=== PATIENT | female | born 1950 | race Caucasian/White ===

== ENCOUNTER 2022-07-16 18:09 | Inpatient (IN) | payer OTHER, MEDICAID ==
[~2022-07-16] VITALS: Ht 157.5 cm; Wt 63.5 kg
[2022-07-16 18:12] VITALS: BP 95/69
--- NOTE | 2022-07-16 18:23 | NUR ---
PATIENT BIBA TO BED 2.
--- NOTE | 2022-07-16 18:46 | NUR ---
pt in bed 2, nad, oriented to name, denies any pain, sr on cm, o2 sat 95%ra, sr up times 2
[2022-07-16] MEDS ORDERED: MEROPENEM 1,000 MG in NACL 0.9% 50 ML IV ONE (19:30)
[2022-07-16] MEDS ORDERED: NACL 0.9% 1,000 ML IV ONE (19:30)
[2022-07-16] MEDS ORDERED: VANCOMYCIN 1,000 MG in DEXTROSE 5% 250 ML IV ONE (19:30)
[2022-07-16] MEDS ORDERED: VANCOMYCIN 1,000 MG VIAL ONE (19:54)
[2022-07-16] MEDS ORDERED: MEROPENEM 1,000 MG VIAL IV ONE (19:56)
[2022-07-16 20:16] LABS: BASOPHILS # (AUTO) 0.1 K/uL (0.00-0.22); BASOPHILS % (AUTO) 0.5 % (0.0-2.0); EOSINOPHILS # (AUTO) 0.2 K/uL (0-0.4); EOSINOPHILS % (AUTO) 1.6 % (0.0-4.0); HEMATOCRIT 35.3 % (36-48); LYMPHOCYTES # (AUTO) 1.9 K/uL (2.5-16.5); LYMPHOCYTES % (AUTO) 18.4 % (20.5-51.1); MEAN CORPUSCULAR HEMOGLOBIN 33 pg (27-31); MEAN CORPUSCULAR HGB CONC 31 g/dL (33-37); MEAN CORPUSCULAR VOLUME 105.4 fL (80-94); MONOCYTES # (AUTO) 0.6 K/uL (0.8-1.0); MONOCYTES % (AUTO) 5.8 % (1.7-9.3); NEUTROPHILS # (AUTO) 7.7 K/uL (1.8-7.7); NEUTROPHILS % (AUTO) 73.7 % (42.2-75.2); PLATELET COUNT (AUTO) 424 K/uL (140-450); RED BLOOD CELL COUNT(AUTO) 3.34 MIL/uL (4.20-5.40); RED CELL DISTRIBUTION WIDTH 15.5 % (11.6-13.7); WHITE BLOOD COUNT (AUTO) 10.5 K/uL (4.8-10.8)
[2022-07-16 21:03] LABS: ALBUMIN 2.1 g/dL (3.4-5.0); ANION GAP 19.2 (8-16); ASPARTATE AMINOTRANSFERASE 41 U/L (15-37); CARBON DIOXIDE 26.6 mmol/L (21-32); CREATININE 2.1 mg/dL (0.6-1.3); GLUCOSE 333 mg/dL (74-106); TOTAL BILIRUBIN 0.4 mg/dL (0.0-1.0)
[2022-07-16 21:05] LABS: SODIUM SERUM 167 mmol/L (136-145)
[2022-07-16 21:06] LABS: UREA NITROGEN, BLOOD 93 mg/dL (7-18)
[2022-07-16 21:08] LABS: CHLORIDE 128 mmol/L (98-107)
[2022-07-16 21:10] LABS: POTASSIUM 6.8 mmol/L (3.5-5.1)
--- NOTE | 2022-07-16 22:37 | NUR ---
patient care was perfomed and pt voided 50 ml.
[2022-07-16 22:52] LABS: APPEARANCE,URINE TURBID (CLEAR); BILIRUBIN,URINE NEGATIVE (NEGATIVE); BLOOD, URINE 2+ (NEGATIVE); COLOR,URINE YELLOW (YELLOW); LEUKOCYTE ESTERASE ,URINE 2+ (NEGATIVE); NITRITE, URINE POSITIVE (NEGATIVE); UGLUCOSE NEGATIVE (NEGATIVE)
[2022-07-16 23:36] LABS: RBC,URINE 0-5 /HPF (0-5); WBC,URINE TOO MANY TO COUNT /HPF (0-5)
[2022-07-17] MEDS ORDERED: NACL 0.9% 1,000 ML IV ONE (01:25)
[2022-07-17] MEDS ORDERED: MULT-2246 PO (01:28)
[2022-07-17] MEDS ORDERED: APIX2.5 PO (01:28)
[2022-07-17] MEDS ORDERED: NATE60TA13 PO (01:28)
[2022-07-17] MEDS ORDERED: AMLO-3 PO (01:28)
[2022-07-17] MEDS ORDERED: HAL5 PO (01:28)
[2022-07-17] MEDS ORDERED: POLY17PD46 PO (01:28)
[2022-07-17] MEDS ORDERED: DOCU-299 PO (01:28)
[2022-07-17] MEDS ORDERED: INSU100S53 SC (01:28)
[2022-07-17] MEDS ORDERED: ALLO100T21 PO (01:28)
[2022-07-17] MEDS ORDERED: DIVA250T PO (01:28)
[2022-07-17] MEDS ORDERED: MAGN400S60 PO (01:28)
[2022-07-17] MEDS ORDERED: SIMV-372 PO (01:28)
[2022-07-17] MEDS ORDERED: METO25TE2 PO (01:28)
[2022-07-17] MEDS ORDERED: METF-1139 PO (01:28)
[2022-07-17] MEDS ORDERED: BENZ2TAB27 PO (01:28)
[2022-07-17] MEDS ORDERED: VENL150T7 PO (01:28)
[2022-07-17] MEDS ORDERED: PANT40EC PO (01:28)
[2022-07-17] MEDS ORDERED: LACT10SO93 PO (01:28)
[2022-07-17] MEDS ORDERED: SYN.05 PO (01:28)
[2022-07-17] MEDS ORDERED: guaiFENesin DM 200/20 MG-10 ML 10 ML UDC PO PRN (01:30)
[2022-07-17] MEDS ORDERED: POTASSIUM CHLORIDE 10 MEQ TABER PO PRN (01:30)
[2022-07-17] MEDS ORDERED: ZOLPIDEM 5 MG TAB PO PRN (01:30)
[2022-07-17] MEDS ORDERED: DOCUSATE SODIUM 100 MG GELCAP PO PRN (01:30)
[2022-07-17] MEDS ORDERED: ONDANSETRON 4 MG/2 ML VIAL IM/IVP PRN (01:30)
[2022-07-17] MEDS ORDERED: ACETAMINOPHEN 325 MG TAB PO PRN (01:30)
[2022-07-17] MEDS ORDERED: HYDROcodone/APAP 7.5/325 MG 1 TAB PO PRN (01:30)
[2022-07-17] MEDS ORDERED: NACL 0.9% 1,000 ML IV SCH (01:30)
[2022-07-17] MEDS ORDERED: INSULIN REGULAR, HUMAN 100 UNIT/ML VIAL IV SCH ×2 (01:35→04:35)
[2022-07-17 02:22] LABS: PROTHROMBIN TIME 12.5 secs (10.8-13.4)
[2022-07-17] MEDS: DEXTROSE 50% 50 ML SYR IVP ONE ×2 (03:00→05:12)
[2022-07-17] MEDS ORDERED: DEXTROSE 50% 50 ML SYR IVP ONE ×2 (04:26→05:06)
[2022-07-17] MEDS ORDERED: PIPERACILLIN/TAZOBACTAM 3.375 GM in DEXTROSE 5% 50 ML IV SCH (05:00)
[2022-07-17] MEDS ORDERED: PIPERACILLIN/TAZOBACTAM 3.375 GM in DEXTROSE 5% 50 ML IV ONE (05:00)
[2022-07-17] MEDS ORDERED: PIPERACILLIN/TAZOBACTAM 2.25 GM VIAL IV ONE (05:41)
[2022-07-17] MEDS: PIPERACILLIN/TAZOBACTAM 2.25 GM in DEXTROSE 5% 50 ML IV SCH ×3 (05:46→20:02)
[2022-07-17 07:20] LABS: BASOPHILS % (AUTO) 0.3 % (0.0-2.0); EOSINOPHILS # (AUTO) 0.3 K/uL (0-0.4); EOSINOPHILS % (AUTO) 2.6 % (0.0-4.0); HEMATOCRIT 31.2 % (36-48); HEMOGLOBIN 9.6 g/dL (12.0-16.0); LYMPHOCYTES # (AUTO) 2.1 K/uL (2.5-16.5); LYMPHOCYTES % (AUTO) 18.9 % (20.5-51.1); MEAN CORPUSCULAR HEMOGLOBIN 33 pg (27-31); MEAN CORPUSCULAR HGB CONC 31 g/dL (33-37); MEAN CORPUSCULAR VOLUME 107.1 fL (80-94); MONOCYTES # (AUTO) 0.8 K/uL (0.8-1.0); MONOCYTES % (AUTO) 7.1 % (1.7-9.3); NEUTROPHILS % (AUTO) 71.1 % (42.2-75.2); PLATELET COUNT (AUTO) 332 K/uL (140-450); RED BLOOD CELL COUNT(AUTO) 2.92 MIL/uL (4.20-5.40); RED CELL DISTRIBUTION WIDTH 15.1 % (11.6-13.7); WHITE BLOOD COUNT (AUTO) 11.2 K/uL (4.8-10.8)
--- NOTE | 2022-07-17 07:25 | NUR ---
report received from ирина duarte
[2022-07-17 07:34] LABS: ANION GAP 15.2 (8-16); CARBON DIOXIDE 24.6 mmol/L (21-32); CHLORIDE 136 mmol/L (98-107); CREATININE 1.8 mg/dL (0.6-1.3); GLUCOSE 269 mg/dL (74-106); POTASSIUM 3.8 mmol/L (3.5-5.1)
[2022-07-17 07:39] LABS: MAGNESIUM 1.8 mg/dL (1.8-2.4); PHOSPHORUS 2.1 mg/dL (2.5-4.9)
[2022-07-17 07:49] LABS: SODIUM SERUM 172 mmol/L (136-145); UREA NITROGEN, BLOOD 71 mg/dL (7-18)
--- NOTE | 2022-07-17 08:21 | NUR ---
Patient will be admitted to care of . Admited to TELE. Will go to room 120a. Belongings list completed. Report to yahaira duarte.
[2022-07-17] MEDS ORDERED: PANTOPRAZOLE 40 MG TABEC PO SCH (09:00)
--- NOTE | 2022-07-17 09:17 | NUR ---
PATIENT HAS BEEN SCREENED AND CATEGORIZED MODERATE NUTRITION RISK. PATIENT WILL BE SEEN WITHIN 3-5 DAYS OF ADMISSION. 07/17/22-07/22/[address] Addendum: 07/18/22 at [address] [facility] REFERRAL RECEIVED ON 07/18/22. REFERRAL DOES NOT MEET HIGH RISK CRITERIA PER HOSPITAL POLICY. PT WILL BE SEEN AND ASSESSED ACCORDING TO THE NUTRITION CARE POLICY. REVIEWED BY PATRICIA BALL RD
[2022-07-17] MEDS: DEXTROSE 5% 1,000 ML IV SCH ×2 (10:07→18:55)
[2022-07-17] MEDS ORDERED: DEXTROSE 50% 50 ML SYR IVP PRN (14:25)
[2022-07-17] MEDS: BLOOD GLUCOSE MONITORING 1 DEV DEV FS SCH ×2 (16:30→20:01)
[2022-07-17] MEDS: INSULIN LISPRO SLIDING SCALE 100 UNITS/ML VIAL SUBQ PRN ×2 (18:23→20:12)
--- NOTE | 2022-07-17 19:30 | NUR ---
RECEIVED PATIENT LYING ON THE BED, AWAKE, ALERT TO PERSON ONLY, NO SIGNS OF PAIN NOTED, NO SIGNS OF DISTRESS NOTED. D5 RUNNING @100ML/HR ON RIGHT AC ACCESS SITE, G 20, LINE INTACT AND PATENT. ALL SAFETY MEASURES IN PLACE.
[2022-07-17 20:00] VITALS: BP 155/73
--- NOTE | 2022-07-17 20:10 | NUR ---
BLOOD SUGAR 298 MG/DL, GIVEN 6 UNITS OF INSULIN PER SLIDING SCALE. DUE MEDICATIONS GIVEN ORDERED. CALL LIGHT WITHIN REACH.
[2022-07-17] MEDS: APIXABAN 2.5 MG TAB PO SCH (20:13)
[2022-07-17] MEDS: SIMVASTATIN 20 MG TAB PO SCH (20:14)
[2022-07-18] VITALS: BP 141/68
[2022-07-18 04:00] VITALS: BP 144/71
--- NOTE | 2022-07-18 04:10 | NUR ---
BEDSIDE CARE DONE. NO SIGNS OF PAIN NOTED, BREATHING EVEN AND NON LABORED ON ROOM AIR. SEIZURE PRECAUTIONS MAINTAINED.
[2022-07-18] MEDS: PIPERACILLIN/TAZOBACTAM 2.25 GM in DEXTROSE 5% 50 ML IV SCH ×3 (04:47→21:16)
--- NOTE | 2022-07-18 04:47 | NUR ---
SCHEDULED IV ANTIBIOTIC GIVEN ORDERED. ALL SAFETY MEASURES MAINTAINED.
[2022-07-18] MEDS: DEXTROSE 5% 1,000 ML IV SCH ×2 (04:50→17:29)
[2022-07-18] MEDS: LEVOTHYROXINE 0.05 MG TAB PO SCH (05:49)
[2022-07-18] MEDS: BLOOD GLUCOSE MONITORING 1 DEV DEV FS SCH ×4 (06:38→21:44)
--- NOTE | 2022-07-18 07:25 | NUR ---
RECEIVED REPORT FROM OUTSIDE MACHINIST FOR CONTINUITY OF CARE. INITIAL ASSESSMENT DONE. IVF INFUSING WELL. NO C/O PAIN OR DISCOMFORT. CALL LIGHT KEPT WITHIN REACH. WILL CONTINUE TO MONITOR.
--- NOTE | 2022-07-18 07:27 | NUR ---
ENDORSED TO DAY NURSE FOR CONTINUITY OF CARE. PATIENT IN STABLE CONDITION.
[2022-07-18 08:00] VITALS: BP 123/59
[2022-07-18 08:04] LABS: ANION GAP 12.8 (8-16); CARBON DIOXIDE 27.3 mmol/L (21-32); CHLORIDE 122 mmol/L (98-107); CREATININE 1.6 mg/dL (0.6-1.3); GLUCOSE 178 mg/dL (74-106); POTASSIUM 4.1 mmol/L (3.5-5.1); UREA NITROGEN, BLOOD 49 mg/dL (7-18)
[2022-07-18 08:09] LABS: MAGNESIUM 1.3 mg/dL (1.8-2.4); PHOSPHORUS 2.7 mg/dL (2.5-4.9)
[2022-07-18 08:11] LABS: BASOPHILS % (AUTO) 0.4 % (0.0-2.0); EOSINOPHILS # (AUTO) 0.4 K/uL (0-0.4); EOSINOPHILS % (AUTO) 5.2 % (0.0-4.0); HEMATOCRIT 33.2 % (36-48); HEMOGLOBIN 7.1 g/dL (12.0-16.0); LYMPHOCYTES # (AUTO) 1.1 K/uL (2.5-16.5); LYMPHOCYTES % (AUTO) 15.8 % (20.5-51.1); MEAN CORPUSCULAR HEMOGLOBIN 23 pg (27-31); MEAN CORPUSCULAR HGB CONC 21 g/dL (33-37); MEAN CORPUSCULAR VOLUME 106.3 fL (80-94); MONOCYTES # (AUTO) 0.3 K/uL (0.8-1.0); MONOCYTES % (AUTO) 4.9 % (1.7-9.3); NEUTROPHILS # (AUTO) 5.2 K/uL (1.8-7.7); NEUTROPHILS % (AUTO) 73.7 % (42.2-75.2); PLATELET COUNT (AUTO) 316 K/uL (140-450); RED BLOOD CELL COUNT(AUTO) 3.13 MIL/uL (4.20-5.40); RED CELL DISTRIBUTION WIDTH 15.2 % (11.6-13.7); WHITE BLOOD COUNT (AUTO) 7.1 K/uL (4.8-10.8)
[2022-07-18 08:12] LABS: SODIUM SERUM 158 mmol/L (136-145)
[2022-07-18] MEDS: BENZTROPINE 1 MG TAB PO SCH (09:46)
[2022-07-18] MEDS: PANTOPRAZOLE 40 MG TABEC PO SCH (09:47)
[2022-07-18] MEDS: allopurinoL 100 MG TAB PO SCH (09:49)
[2022-07-18] MEDS: amLODIPine 5 MG TAB PO SCH (09:49)
[2022-07-18] MEDS: METOPROLOL SUCCINATE 50 MG TABER PO SCH (09:49)
[2022-07-18] MEDS: APIXABAN 2.5 MG TAB PO SCH ×2 (09:50→21:44)
[2022-07-18 12:00] VITALS: BP 130/50
--- NOTE | 2022-07-18 12:08 | NUR ---
BS CHECKED 246. INSULIN WAS GIVEN PER SLIDING SCALE.
[2022-07-18] MEDS: INSULIN LISPRO SLIDING SCALE 100 UNITS/ML VIAL SUBQ PRN (12:09)
--- NOTE | 2022-07-18 12:21 | NUR ---
IV ZOSYN WAS GIVEN BY GUNNAR MORALES. TOLERATING WELL.
[2022-07-18] MEDS: MAG SULF 2000 MG/WATER PREMIX 50 ML IV PRN (12:26)
--- NOTE | 2022-07-18 12:26 | NUR ---
PRN MAG RIDER IV WAS GIVEN BY GUNNAR MORALES FOR MAGNESIUM 1.3. TOLERATING WELL.
--- NOTE | 2022-07-18 13:41 | NUR ---
DC PLANN[age] YRS OLD FEMALE PATIENT WAS ADMITTED FROM [facility] WITH A DX OF SEPSIS DUE TO UTI. PATIENT HAS A HX OF CEREBRAL PALSY AND DEVELOPMENTAL DELAY, HTN, HYPOTHYROIDISM AND DM. CXR SHOWED NO ACUTE CARDIOPULMONARY DISEASE. RAPID COVID TEST NEGATIVE. ADMINISTERED IVF, AND IV ABX ZOSYN AND CONTINUED HOME MEDS. CONSULTED WITH GI AND NEPHRO. CM TO FOLLOW.
[2022-07-18 16:00] VITALS: BP 126/64
--- NOTE | 2022-07-18 17:39 | NUR ---
BS CHECKED 147. NO COVERAGE NEEDED.
--- NOTE | 2022-07-18 19:30 | NUR ---
REPORT GIVEN NIGHT NURSE BRET FOR CONTINUITY OF CARE. REMAINS STABLE.
--- NOTE | 2022-07-18 19:31 | NUR ---
RECEIVED REPORT FROM LILLI VALENCIA FOR CONTINUITY OF CARE. PT SLEEPING, EASILY AROUSABLE BY VERBAL STIMULI. RESPIRATIONS EVEN AND UNLABORED ON RA. ON WINDOW DECORATOR. SKIN INTACT, WARM AND DRY TO TOUCH. IV SITE RAC 20G, INFUSING D5 AT 100ML/HR. CALL LIGHT WITHIN REACH. SAFETY PRECAUTIONS IN PLACE Addendum: 07/19/22 at 0001 by Ti Beckford LVN IVF INFUSING D5 AT 50ML/HR.
[2022-07-18 20:00] VITALS: BP 132/59
--- NOTE | 2022-07-18 20:00 | NUR ---
Patient's Plan of Care was discussed and reviewed with SLIDE FORMING MACHINE TENDER: BRET DANGELO
[2022-07-18] MEDS: SIMVASTATIN 20 MG TAB PO SCH (21:42)
--- NOTE | 2022-07-18 21:44 | NUR ---
ADMINISTERED DUE MED. NO INSULIN COVERAGE GIVEN FOR BS 118. REPORT GIVEN TO CARMEN CABALLERO.
[2022-07-19] VITALS: BP 128/63
[2022-07-19 04:00] VITALS: BP 132/91
--- NOTE | 2022-07-19 04:40 | NUR ---
DID MORNING CARE. PT WAS CLEANED AND CHANGED. PT REMAINED CLEAN AND DRY. NO COMPLAINTS OF ANY DISCOMFORT. PT STATED SHE FELT BETTER. SAFETY PRECAUTIONS IN PLACE.
[2022-07-19] MEDS: PIPERACILLIN/TAZOBACTAM 2.25 GM in DEXTROSE 5% 50 ML IV SCH ×2 (05:04→13:33)
[2022-07-19] MEDS: LEVOTHYROXINE 0.05 MG TAB PO SCH (05:37)
[2022-07-19] MEDS: BLOOD GLUCOSE MONITORING 1 DEV DEV FS SCH ×4 (06:36→20:58)
[2022-07-19] MEDS: INSULIN LISPRO SLIDING SCALE 100 UNITS/ML VIAL SUBQ PRN ×2 (06:36→11:56)
--- NOTE | 2022-07-19 06:42 | NUR ---
BLOOD SUGAR CHECK DONE. SLIDING SCALE INSULIN ADMINISTERED.
--- NOTE | 2022-07-19 07:10 | NUR ---
RECEIVED REPORT FROM CROOK OPERATORPILO QUEEN FOR CONTINUITY OF CARE. INITIAL ASSESSMENT DONE. IVF INFUSING WELL. NOT IN ANY DISTRESS NOTED. CALL LIGHT KEPT WITHIN REACH. WILL CONTINUE TO MONITOR.
--- NOTE | 2022-07-19 07:13 | NUR ---
GAVE BEDSIDE REPORT TO LILLI VALENCIA FOR CONTINUITY OF CARE. PT IS STABLE.
--- NOTE | 2022-07-19 07:30 | NUR ---
Patient's Plan of Care was discussed and reviewed with AGRICULTURIST: Judy
[2022-07-19 08:00] VITALS: BP 113/87
[2022-07-19] MEDS: APIXABAN 2.5 MG TAB PO SCH ×2 (10:18→20:48)
[2022-07-19] MEDS: amLODIPine 5 MG TAB PO SCH (10:19)
[2022-07-19] MEDS: PANTOPRAZOLE 40 MG TABEC PO SCH (10:20)
[2022-07-19] MEDS: METOPROLOL SUCCINATE 50 MG TABER PO SCH (10:20)
[2022-07-19] MEDS: BENZTROPINE 1 MG TAB PO SCH (10:20)
[2022-07-19] MEDS: allopurinoL 100 MG TAB PO SCH (10:20)
--- NOTE | 2022-07-19 10:20 | NUR ---
SCHEDULED PO MEDICATIONS WAS GIVEN. TOLERATING WELL.
[2022-07-19 11:25] LABS: BASOPHILS # (AUTO) 0.1 K/uL (0.00-0.22); BASOPHILS % (AUTO) 0.5 % (0.0-2.0); EOSINOPHILS # (AUTO) 0.6 K/uL (0-0.4); EOSINOPHILS % (AUTO) 4.9 % (0.0-4.0); HEMATOCRIT 28.9 % (36-48); HEMOGLOBIN 9.5 g/dL (12.0-16.0); LYMPHOCYTES # (AUTO) 2.4 K/uL (2.5-16.5); LYMPHOCYTES % (AUTO) 19.3 % (20.5-51.1); MEAN CORPUSCULAR HEMOGLOBIN 33 pg (27-31); MEAN CORPUSCULAR HGB CONC 33 g/dL (33-37); MEAN CORPUSCULAR VOLUME 101.8 fL (80-94); MONOCYTES # (AUTO) 0.7 K/uL (0.8-1.0); MONOCYTES % (AUTO) 5.3 % (1.7-9.3); NEUTROPHILS # (AUTO) 8.7 K/uL (1.8-7.7); PLATELET COUNT (AUTO) 331 K/uL (140-450); RED BLOOD CELL COUNT(AUTO) 2.84 MIL/uL (4.20-5.40); RED CELL DISTRIBUTION WIDTH 14.3 % (11.6-13.7); WHITE BLOOD COUNT (AUTO) 12.4 K/uL (4.8-10.8)
[2022-07-19 11:31] LABS: ANION GAP 11.7 (8-16); CHLORIDE 108 mmol/L (98-107); CREATININE 1.6 mg/dL (0.6-1.3); GLUCOSE 179 mg/dL (74-106); POTASSIUM 3.7 mmol/L (3.5-5.1); SODIUM SERUM 144 mmol/L (136-145); UREA NITROGEN, BLOOD 35 mg/dL (7-18)
--- NOTE | 2022-07-19 11:35 | NUR ---
RECEIVED CALLED FROM LAB RESULT + E COLI, ESBL URINE. DR. HERNANDEZ NOTIFIED. ISOLATION PRECAUTION INITIATED.
--- NOTE | 2022-07-19 11:55 | NUR ---
BS CHECKED 153. INSULIN WAS GIVEN PER SLIDING SCALE.
[2022-07-19 12:00] VITALS: BP 120/52
[2022-07-19 12:07] LABS: FOLIC ACID 10.5 ng/mL (>3.0)
--- NOTE | 2022-07-19 13:33 | NUR ---
SCHEDULED IV ZOSYN WAS GIVEN BY SUDEEP MORALES. TOLERATING WELL.
[2022-07-19] MEDS: DEXTROSE 5% 1,000 ML IV SCH (13:34)
[2022-07-19 16:00] VITALS: BP 117/60
[2022-07-19] MEDS: ERTAPENEM SODIUM 500 MG in NACL 0.9% 50 ML IV SCH (16:17)
--- NOTE | 2022-07-19 16:17 | NUR ---
INVANZ IV WAS GIVEN BY SUDEEP MORALES. TOLERATING WELL.
--- NOTE | 2022-07-19 17:04 | NUR ---
BS CHECKED 143. NO COVERAGE NEEDED.
--- NOTE | 2022-07-19 19:30 | NUR ---
REPORT GIVEN TO B[place] M[place] AND CARRIAGE OPERATOR NURSE BRET FOR CONTINUITY OF CARE. REMAINS STABLE.
--- NOTE | 2022-07-19 19:31 | NUR ---
RECEIVED REPORT FROM NURSE VALENCIA FOR CONTINUITY OF CARE. PT AWAKE, IN BED. RESPIRATIONS EVEN AND UNLABORED ON RA. NO DISTRESS NOTED. ON MIS MANAGER. POC DISCUSSED WITH PT AND RN LORRAINE. CALL LIGHT WITHIN REACH. SAFETY PRECAUTIONS IN PLACE.
[2022-07-19 20:00] VITALS: BP 125/59
--- NOTE | 2022-07-19 20:00 | NUR ---
Patient's Plan of Care was discussed and reviewed with LILLI QUEEN.
[2022-07-19] MEDS: SIMVASTATIN 20 MG TAB PO SCH (20:48)
--- NOTE | 2022-07-19 21:06 | NUR ---
ADMINISTERED DUE MEDS. PT TOLERATED WELL.
[2022-07-20] VITALS: BP 100/77
[2022-07-20 04:00] VITALS: BP 121/76
[2022-07-20] MEDS: LEVOTHYROXINE 0.05 MG TAB PO SCH (05:54)
[2022-07-20 06:43] LABS: BASOPHILS # (AUTO) 0.1 K/uL (0.00-0.22); BASOPHILS % (AUTO) 0.7 % (0.0-2.0); EOSINOPHILS # (AUTO) 0.5 K/uL (0-0.4); EOSINOPHILS % (AUTO) 4.6 % (0.0-4.0); HEMATOCRIT 28.7 % (36-48); HEMOGLOBIN 9.3 g/dL (12.0-16.0); LYMPHOCYTES # (AUTO) 3.3 K/uL (2.5-16.5); LYMPHOCYTES % (AUTO) 27.9 % (20.5-51.1); MEAN CORPUSCULAR HEMOGLOBIN 33 pg (27-31); MEAN CORPUSCULAR HGB CONC 33 g/dL (33-37); MEAN CORPUSCULAR VOLUME 99.8 fL (80-94); MONOCYTES # (AUTO) 0.7 K/uL (0.8-1.0); MONOCYTES % (AUTO) 6.3 % (1.7-9.3); NEUTROPHILS # (AUTO) 7.2 K/uL (1.8-7.7); NEUTROPHILS % (AUTO) 60.5 % (42.2-75.2); PLATELET COUNT (AUTO) 350 K/uL (140-450); RED BLOOD CELL COUNT(AUTO) 2.87 MIL/uL (4.20-5.40); WHITE BLOOD COUNT (AUTO) 11.9 K/uL (4.8-10.8)
[2022-07-20 06:54] LABS: ANION GAP 17.9 (8-16); CHLORIDE 107 mmol/L (98-107); CREATININE 1.8 mg/dL (0.6-1.3); GLUCOSE 160 mg/dL (74-106); POTASSIUM 3.9 mmol/L (3.5-5.1); SODIUM SERUM 144 mmol/L (136-145); UREA NITROGEN, BLOOD 38 mg/dL (7-18)
[2022-07-20 07:01] LABS: MAGNESIUM 1.6 mg/dL (1.8-2.4); PHOSPHORUS 4.3 mg/dL (2.5-4.9)
[2022-07-20] MEDS: BLOOD GLUCOSE MONITORING 1 DEV DEV FS SCH ×4 (07:34→20:42)
--- NOTE | 2022-07-20 07:34 | NUR ---
GAVE BEDSIDE REPORT TO LILLI PERALES FOR CONTINUITY OF CARE. PT IS STABLE
--- NOTE | 2022-07-20 07:35 | NUR ---
RECEIVED REPORT FROM WELDER FABRICATOR NURSE, TARIK, FOR CONTINUITY OF CARE. PT IN BED AT THIS TIME, AWAKE. RESPIRATIONS ARE EVEN AND UNLABORED, ON ROOM AIR. NO SIGNS OF DISTRESS NOTED. PT IS ALERT AND ORIENTED X1, TO SELF. PT HAS HX OF DEVELOPMENTALLY DISABLED. ABD IS NONTENDER, NONDISTENDED WITH HYPOACTIVE BOWEL SOUNDS PRESENT. PT HAS FULL ROM TO UPPER AND LOWER EXTREMITIES. PT IS ON CARDIAC MONITORING, SR AT THIS TIME. NO COMPLAINTS OF PAIN OR DISCOMFORT NOTED. CALL LIGHT WITHIN REACH. ALL SAFETY MEASURES IN PLACE.
[2022-07-20 08:00] VITALS: BP 168/74
--- NOTE | 2022-07-20 08:00 | NUR ---
Patient's Plan of Care was discussed and reviewed with BASKETBALL COACH: DIAZ MCCAULEY
--- NOTE | 2022-07-20 08:47 | NUR ---
DC PLANNING LATE ENTRY, ASSESMENT COMPLETED WITH THERESA ON 07/19 ASSESSMENT COMPLETE PLEASE REFER TO ASSESSMENT FOR ADDITIONAL DETAILS PER NOTES PT IS DEVELOPMENTALLY DELAYED THEREFORE COLLAT INFO GATHERED FROM Solomon [employer]DE[employer] INFECTION CONTROL MANAGER. PT IS A 71 YR OLD FEMALE ADMITTED TO [facility] FROM HOME WITH DX OF SEPSIS AND UTI. PT HAS PAST MEDICAL HX OF CEREBRAL PALSY, DEVELOPMENTAL DELAY, HYPERTENSION, HYPOTHYROIDISM & DIABETES. PT IS REPORTED TO BE [facility] CONNECTED; ANDREY BURKS [phone]. [facility] IS REPORTED TO PROVIDE ALL MEDICAL CONSENTS WHEN AND IF NEEDED. PT IS REPORTED TO HAVE NO FAMILY INVOLVEMENT. THERESA REPORTS PT HAS HX OF BIPOLAR D/O AND MEETS WITH PSYCHIATRIST 1X MONTHLY FROM [place] FOR MEDICATION MANAGEMENT. PT IS REPORTED TO BE NON-AMBULATORY AND UTILIZES WC NEEDED. THERESA REPORTS PATIENT HOWEVER DOES ATTEMPT TO WALK AWAY IF NOT WATCHED CLOSELY. PT IS REPORTED TO BE TOTAL CARE AT FACILITY. PT IS A RESIDENT OF [facility], ADMISSION DATE 08/06/21. THERESA REPORT DC PLAN IS FOR PT TO RETURN TO BOARD AND CARE WHEN MEDICALLY STABLE. THERESA REPORTS TRANSPORATION PROVIDED BY [facility] AND [facility] AND IS REQUESTING HOME BE NOTIFIED EARLY POSSIBLE. Addendum: 07/20/22 at 0848 by Angus STODDARD Amended: Links added.
[2022-07-20] MEDS: APIXABAN 2.5 MG TAB PO SCH ×2 (09:06→20:29)
[2022-07-20] MEDS: BENZTROPINE 1 MG TAB PO SCH (09:09)
[2022-07-20] MEDS: allopurinoL 100 MG TAB PO SCH (09:10)
[2022-07-20] MEDS: PANTOPRAZOLE 40 MG TABEC PO SCH (09:10)
[2022-07-20] MEDS: METOPROLOL SUCCINATE 50 MG TABER PO SCH (09:13)
[2022-07-20] MEDS: amLODIPine 5 MG TAB PO SCH (09:13)
--- NOTE | 2022-07-20 09:15 | NUR ---
ADMINISTERED SCHEDULED MEDICATIONS. EDUCATED PT ON MEDS ADMINISTERED. PT TOLERATED WELL.
--- NOTE | 2022-07-20 10:50 | NUR ---
RECEIVED ORDER FOR PATIENT TO GO TO SNF FOR IV ANTI. FAXED ALL PAPERWORK TO [facility]. SPOKE WITH WILMER WHO INFORMED ME PATIENT IS UNDER REVIEW AND WILL GET BACK TO ME IF SHE IS ABLE TO ACCEPT PATIENT. WILL FOLLOW UP WITH RESULTS. Addendum: 07/20/22 at 1152 by Valeria Nair RN DC PLANNING: RECEIVED A CALL FROM [facility] SPOKE WITH FARRUKH [phone] STATED PATIENT IS THEIR RESIDENT AND THEY CAN CONTINUE THE IV ABX AND PHYSICAL THERAPY. FAXED ALL PAPERWORK TO [phone] AND PER FARRUKH CAN ARRANGE THE TRANSPORT. DC LOADER TO FOLLOW. Addendum: 07/21/22 at 3756 by KG CAMPOVERDE CM FARRUKH CALLED TO LET US KNOW TRANSPORTATION WILL BE HERE AT 1400 TO [place] PATIENT. LUIS VALENCIA AWARE OF THE ABOVE INFORMATION. Addendum: 07/21/22 at 1606 by Valeria Nair RN DC PLANNING PATIENT GOT ACCEPTED AT [facility] CAN GO TO ROOM 21A # TO GIVE REPORT [phone] PER FARRUKH BERRIOS ARRANGED TRANSPORT AND CALL US BACK. NOTIFIED JUANI CHARGE NURSE.
[2022-07-20 12:00] VITALS: BP 148/74
--- NOTE | 2022-07-20 12:13 | NUR ---
WENT TO PT ROOM TO REPOSITION PT AND TRAVELIFT OPERATOR PT BLANKETS AND GOWN. PT THREW BLANKETS OFF OF BED AND REMOVED GOWN.
[2022-07-20] MEDS: INSULIN LISPRO SLIDING SCALE 100 UNITS/ML VIAL SUBQ PRN ×2 (12:31→17:46)
--- NOTE | 2022-07-20 14:30 | NUR ---
PT. WITH LOW BRENDA SCALE AT MODERATE TO HIGH RISK, CONTINUE TO FOLLOW PRESSURE INJURY PREVENTION INTERVENTIONS. -POSITIONING: TURN AND REPOSITION PATIENT Q 2H OR SOONER USE PILLOWS TO KEEP BONY PROMINENCES FROM DIRECT CONTACT WITH SURFACES USE REPOSITIONING WEDGES TO PROVIDE 30-DEGREE ANGLE FOR SIDE LYING POSITIONS OFFLOADING OR FOAM DRESSING TO ALL TUBING TO PREVENT MEDICAL DEVICES RELATED PRESSURE INJURY -RE-EVALUATING AND MANAGING INCONTINENCE MONITOR SKIN CONDITION DURING POSITION CHANGE DO NOT MASSAGE REDNESS, BONY PROMINENCES FREQUENT CAMI-CARE AND PROVIDE BARRIER CREAMS PRN IF SOILING MOISTURE CONTROL BY OFFER BED ARANGO/URINAL /ABSORBENT PAD TO WICK AND HOLD MOISTURE KEEP SKIN DRY AND PROTECT FROM FRICTION -MANAGE FRICTION/SHEAR/MOBILITY KEEP HOB AT THE LOWEST LEVEL OF ELEVATION NO MORE THAN 30 DEGREE UNLESS OTHERWISE CONTRAINDICATED USE LIFT SHEET OR TRANSFER DEVICE TO MOVE PATIENT AND PREVENT LATERAL SHEER. PROTECT HEELS, ELBOWS BONY PROMINENCES WITH SKIN BERRIES OR FOAM DRESSING IF EXPOSED TO FRICTION OFFLOAD BILATERAL HEELS BY PLACING PILLOWS UNDER CALVES AT ALL TIMES, UNLESS OTHERWISE CONTRAINDICATED -PRESSURE REDISTRIBUTION SURFACE THERAPY KATHRYN ISOFLEX MATTRESS -NUTRITION: PLEASE FOLLOW RD RECOMMENDATIONS AND OFFER NUTRITION SUPPLEMENTS IF ORDERED. PLEASE CONTACT WOUND CARE NURSE FOR ANY QUESTION AND CHANGE OF WOUND CONDITION.
--- NOTE | 2022-07-20 14:41 | NUR ---
07/20/22 RD INITIAL ASSESSMENT COMPLETED PLEASE REFER TO NUTRITION ASSESSMENT UNDER CARE ACTIVITY FOR ESTIMATED NUTRITIONAL NEEDS. 1. CONTINUE [id number] DIET TOLERATED 2. RECOMMEND GLUCERNA 1/DAY -PROVIDES 220 KCAL AND [address] TO FOLLOW-UP 7 DAYS, LOW RISK REVIEWED BY PATRICIA BALL RD
[2022-07-20] MEDS: ERTAPENEM SODIUM 500 MG in NACL 0.9% 50 ML IV SCH (15:21)
--- NOTE | 2022-07-20 15:46 | NUR ---
PT YELLING, WENT TO CHECK ON PT. PT YELLING FOR HER MOTHER. NOTED THAT PT HAD THROWN ALL BLANKETS ON THE FLOOR AND ATTEMPTING TO TAKE HOSPITAL GOWN OFF. RE-ORIENTED PT.
[2022-07-20 16:00] VITALS: BP 154/86
--- NOTE | 2022-07-20 18:05 | NUR ---
DID ROUNDS ON PT. ASSISTED WITH CHANGING PT. PT HAD LARGE BM.
--- NOTE | 2022-07-20 19:23 | NUR ---
ENDORSED PT TO STRAW HAT PLUNGER OPERATOR NURSEPARMINDER, FOR CONTINUITY OF CARE. PT IS STABLE.
--- NOTE | 2022-07-20 19:24 | NUR ---
RECEIVED PT FROM MORNING SHIFT NURSE. PT IS AOX1 AND BEDBOUND. PT IS ON ROOM AIR AND ON CCHO DIET. PT HAS LEFT FOREARM GAUGE 22, SALINE LOCK. PT SKIN IS INTACT WITH BILATERAL LOWER EXTREMITY WEAKNESS AND FOOT CONTRACTION. NO COMPLAIN OF PAIN AT THIS THIS TIME. NO S/S OF RESPIRATORY DISTRESS NOTED. ALL SAFETY MEASURES IMPLEMENTED. BED IN LOW POSITION, BED WHEELS ON LOCK AND CALL LIGHT WITHIN REACH.
[2022-07-20 20:00] VITALS: BP 112/47
[2022-07-20] MEDS: SIMVASTATIN 20 MG TAB PO SCH (20:27)
[2022-07-20] MEDS: MAG SULF 2000 MG/WATER PREMIX 50 ML IV PRN (20:31)
--- NOTE | 2022-07-20 20:42 | NUR ---
ALL SCHEDULED AND PRESCRIBED MEDICATION WAS GIVEN TO PT PER MD ORDER. PT BLOOD GLUCOSE IS 144. NO INSULIN COVERAGE NEEDED. ALL SAFETY MEASURES IMPLEMENTED. BED IN LOW POSITION, BED WHEELS ON LOCK AND CALL LIGHT WITHIN REACH.
--- NOTE | 2022-07-20 22:00 | NUR ---
PT WAS GIVEN WARM BLANKET. NO S/S OF RESPIRATORY DISTRESS NOTED. ALL SAFETY MEASURES IMPLEMENTED. BED IN LOW POSITION, BED WHEELS ON LOCK AND CALL LIGHT WITHIN REACH.
--- NOTE | 2022-07-21 | NUR ---
CHANGED PT'S DIAPER AND LINENS. NO S/S OF RESPIRATORY DISTRESS NOTED. ALL SAFETY MEASURES IMPLEMENTED. BED IN LOW POSITION, BED WHEELS ON LOCK AND CALL LIGHT WITHIN REACH.
--- NOTE | 2022-07-21 02:00 | NUR ---
ADVISE THE PT TO SLEEP. TURNED THE PT'S POSITION. NO S/S OF RESPIRATORY DISTRESS NOTED. ALL SAFETY MEASURES IMPLEMENTED. BED IN LOW POSITION, BED WHEELS ON LOCK AND CALL LIGHT WITHIN REACH.
--- NOTE | 2022-07-21 04:00 | NUR ---
MORNING CARE WAS DONE TO PT. CHANGED DIAPER, LINENS AND GOWN. NO S/S OF RESPIRATORY DISTRESS NOTED. ALL SAFETY MEASURES IMPLEMENTED. BED IN LOW POSITION, BED WHEELS ON LOCK AND CALL LIGHT WITHIN REACH.
[2022-07-21] MEDS: LEVOTHYROXINE 0.05 MG TAB PO SCH (05:34)
--- NOTE | 2022-07-21 05:34 | NUR ---
SCHEDULED AND PRESCRIBED MEDICATION WAS GIVEN TO PT PER MD ORDER. ALL SAFETY MEASURES IMPLEMENTED. BED IN LOW POSITION, BE DWHEELS ON LOCK AND CALL LIGHT WITHIN REACH.
[2022-07-21] MEDS: BLOOD GLUCOSE MONITORING 1 DEV DEV FS SCH ×3 (06:34→16:57)
[2022-07-21] MEDS: INSULIN LISPRO SLIDING SCALE 100 UNITS/ML VIAL SUBQ PRN ×2 (06:35→12:31)
--- NOTE | 2022-07-21 06:35 | NUR ---
PT BLOOD GLUCOSE IS 179. HUMALOG INSIL 2 UNITS WAS GIVEN TO PT PER MD ORDER.
[2022-07-21 07:09] LABS: BASOPHILS # (AUTO) 0.1 K/uL (0.00-0.22); BASOPHILS % (AUTO) 0.5 % (0.0-2.0); EOSINOPHILS # (AUTO) 0.5 K/uL (0-0.4); HEMATOCRIT 28.6 % (36-48); HEMOGLOBIN 9.4 g/dL (12.0-16.0); LYMPHOCYTES % (AUTO) 28.6 % (20.5-51.1); MEAN CORPUSCULAR HEMOGLOBIN 33 pg (27-31); MEAN CORPUSCULAR HGB CONC 33 g/dL (33-37); MONOCYTES # (AUTO) 0.7 K/uL (0.8-1.0); MONOCYTES % (AUTO) 6.6 % (1.7-9.3); NEUTROPHILS # (AUTO) 6.2 K/uL (1.8-7.7); NEUTROPHILS % (AUTO) 59.3 % (42.2-75.2); PLATELET COUNT (AUTO) 350 K/uL (140-450); RED BLOOD CELL COUNT(AUTO) 2.86 MIL/uL (4.20-5.40); RED CELL DISTRIBUTION WIDTH 13.9 % (11.6-13.7); WHITE BLOOD COUNT (AUTO) 10.4 K/uL (4.8-10.8)
--- NOTE | 2022-07-21 07:15 | NUR ---
RECEIVED REPORT FROM, TIEING MACHINE OPERATOR FOR CONTINUITY OF CARE. INITIAL ASSESSMENT DONE. IV SITE INTACT. ON SL. NO C/O PAIN OR DISCOMFORT. CALL LIGHT KEPT WITHIN REACH. WILL CONTINUE TO MONITOR.
--- NOTE | 2022-07-21 07:20 | NUR ---
PT IS STABLE. ENDORSED PT TO MORNING SHIFT NURSE FOR CONTINUITY OF CARE.
[2022-07-21 08:00] VITALS: BP 120/73
[2022-07-21 08:43] LABS: ANION GAP 14.3 (8-16); CARBON DIOXIDE 25.6 mmol/L (21-32); CHLORIDE 108 mmol/L (98-107); CREATININE 1.7 mg/dL (0.6-1.3); GLUCOSE 201 mg/dL (74-106); POTASSIUM 3.9 mmol/L (3.5-5.1); SODIUM SERUM 144 mmol/L (136-145); UREA NITROGEN, BLOOD 39 mg/dL (7-18)
[2022-07-21] MEDS: BENZTROPINE 1 MG TAB PO SCH (08:43)
[2022-07-21] MEDS: amLODIPine 5 MG TAB PO SCH (08:43)
[2022-07-21] MEDS: PANTOPRAZOLE 40 MG TABEC PO SCH (08:44)
[2022-07-21] MEDS: allopurinoL 100 MG TAB PO SCH (08:44)
[2022-07-21 08:45] LABS: MAGNESIUM 2.3 mg/dL (1.8-2.4); PHOSPHORUS 3.9 mg/dL (2.5-4.9)
[2022-07-21] MEDS: METOPROLOL SUCCINATE 50 MG TABER PO SCH (08:45)
[2022-07-21] MEDS: APIXABAN 2.5 MG TAB PO SCH (08:47)
--- NOTE | 2022-07-21 08:47 | NUR ---
SCHEDULED MEDICATIONS GIVEN. TOLERATING WELL.
[2022-07-21] MEDS ORDERED: INV1I IV (10:15)
--- NOTE | 2022-07-21 12:31 | NUR ---
BS CHECKED 325. INSULIN WAS GIVEN PER SLIDING SCALE.
[2022-07-21] MEDS: ERTAPENEM SODIUM 500 MG in NACL 0.9% 50 ML IV SCH (15:00)
[2022-07-21 16:00] VITALS: BP 107/83
--- NOTE | 2022-07-21 16:57 | NUR ---
BS CHECKED 139. NO COVERAGE NEEDED.
--- NOTE | 2022-07-21 17:37 | NUR ---
INVANZ IV WAS GIVEN BY ARELI MORALES. TOLERATING WELL.
--- NOTE | 2022-07-21 18:03 | NUR ---
PATIENT NOT PICKED UP BY TRANSPORT BY 1700 TO GO TO [facility], WASTE HANDLING TECHNICIAN CALLED FARRUKH TO ASK ABOUT DELAY, RECEIVED A CALL BACK AT 1730. FARRUKH STATED THAT TRANSPORT WAS ARRANGED BY THE FOR THE FACILITY AND STATED SHE WOULD CALL WASTE HANDLING TECHNICIAN BACK WITH INFORMATION. NO CALL RECEIVED, WASTE HANDLING TECHNICIAN CALLED [facility], THEY WERE UNABLE TO TRANSPORT SNF IS OUT OF THEIR AREA AND THEY HAD NO AVAILABILITY TODAY. [facility] UNABLE TO TRANSPORT, WASTE HANDLING TECHNICIAN CALLED & AND SPOKE WITH MARIELA, NOW WAITING FOR CALL BACK. WASTE HANDLING TECHNICIAN SPOKE WITH HAYES AT [facility] AND CONFIRMED THAT PATIENT IS EXPECTED TODAY. Addendum: 07/21/22 at 1824 by Patricia Carter CM WASTE HANDLING TECHNICIAN SPOKE WITH MARIELA AT [facility], PATIENT WILL BE PICKED UP BETWEEN 1929 AND 1999. HAYES, NURSING BONDING SUPERVISOR AT [facility] MADE AWARE OF ETA WELL CHARGE NURSE JUANI.
--- NOTE | 2022-07-21 18:50 | NUR ---
CALLED [facility] REPORT GIVEN TO SOILA.
--- NOTE | 2022-07-21 19:20 | NUR ---
RECEIVED REPORT FROM DAY SHIFT NURSE FOR CONTINUITY OF CARE. PT IS SET TO BE DISCHARGED BETWEEN [phone]. GOING TO [facility] AT [facility].
--- NOTE | 2022-07-21 19:25 | NUR ---
ENDORSED TO NIGHT NURSE FRANCO FOR CONTINUITY OF CARE. ENDORSED TO FRANCO PT IS FOR DISCHARGE TO [facility]. ETA SCHOOL BASED THERAPIST TIME [phone] BY [facility] TRANSPORTATION. REMAINS STABLE.
--- NOTE | 2022-07-21 20:01 | NUR ---
PT DISCHARGED AT 1957, 07/21/22, TAKEN TO [facility].
== END 2022-07-21 20:00 | DRG 871 ==
LOC: MED 18:09 → MTU 07-17 01:35
PROVIDERS: ADMIT Student in an Organized Health Care Education/Training Program; ATTEND Student in an Organized Health Care Education/Training Program
DX: A41.9 Sepsis, unspecified organism (principal); E43 Unspecified severe protein-calorie malnutrition; N17.0 Acute kidney failure with tubular necrosis; N39.0 Urinary tract infection, site not specified; Z16.12 Extended spectrum beta lactamase (ESBL) resistance; E87.0 Hyperosmolality and hypernatremia; B96.20 Unspecified Escherichia coli [E. coli] as the cause of diseases classified elsewhere; D53.9 Nutritional anemia, unspecified; E03.9 Hypothyroidism, unspecified; E78.5 Hyperlipidemia, unspecified; E86.0 Dehydration; G80.9 Cerebral palsy, unspecified; I45.10 Unspecified right bundle-branch block; Z20.822 Contact with and (suspected) exposure to COVID-19; Z90.710 Acquired absence of both cervix and uterus; M10.9 Gout, unspecified; E83.42 Hypomagnesemia; E11.65 Type 2 diabetes mellitus with hyperglycemia; E11.22 Type 2 diabetes mellitus with diabetic chronic kidney disease; Z68.25 Body mass index [BMI] 25.0-25.9, adult; I12.9 Hypertensive chronic kidney disease with stage 1 through stage 4 chronic kidney disease, or unspecified chronic kidney disease; N18.9 Chronic kidney disease, unspecified; Z90.49 Acquired absence of other specified parts of digestive tract
CPT/HCPCS: 36415; 71045; 76770; 80048; 80053; 81001; 82607; 82728; 82746; 82948; 83036; 83540; 83605; 83735; 83880; 84100; 84484; 85025; 85045; 85610; 85730; 87040; 87086; 93005; 96361; 96365; 96368; 97110; 97112; 97163-GP; 97530; 99285; J1335; J1815; J2185; J2543; J3370; J3475; J7060; Q0092